=== PATIENT | female | born 1975 | race Caucasian/White ===

== ENCOUNTER → 2024-01-22 06:22 | Day surgery (SDC) | payer BC, SELFPAY | LOC: GI 06:22 | PROVIDERS: ATTENDING PHYSICIAN Internal Medicine Gastroenterology | DX: Z12.11 Encounter for screening for malignant neoplasm of colon (principal); K64.8 Other hemorrhoids | CPT/HCPCS: G0121 ==

== ENCOUNTER → 2024-05-27 11:48 | Outpatient (REF) | payer BC, SELFPAY | LOC: HWWDC 11:48 | PROVIDERS: ATTENDING PHYSICIAN Obstetrics & Gynecology Gynecology; FAMILY PHYSICIAN Nurse Practitioner Adult Health | DX: Z12.31 Encounter for screening mammogram for malignant neoplasm of breast (principal) | CPT/HCPCS: 77063; 77067 ==

== ENCOUNTER 2024-10-13 12:03 | Emergency (ER) | payer BC, SELFPAY ==
[2024-10-13 12:10] VITALS: BP 154/103
--- NOTE | 2024-10-13 13:29 | ED.GENMED ---
History of Present Illness
General
Chief Complaint: Throat Problem
Time Seen by Provider: 10/13/24 13:17
History of Present Illness
History of Present Illness:
Note:
CHIEF COMPLAINT(S)
Swollen uvula and gastrointestinal symptoms.
HISTORY OF PRESENT ILLNESS
The patient is a 49-year-old female who presents with a swollen uvula and reports having a stomach bug since this morning. She experienced nausea and vomiting, with symptoms pointing towards a possible gastroenteritis. She notes the uvula is swollen
but not painful, describing it as rather small and without significant swelling of the surrounding throat tissues. She has vomited and experiences mild diarrhea. The patient mentions that there is no significant pain following the vomiting,
suggesting some improvement. She has not taken any medications prior to coming in.
The swelling of the uvula is suspected to be chemically induced, possibly due to acid irritation from vomiting. She has been on a GLP-1 agonist for three weeks without recent dose changes. She describes some unease but no significant abdominal pain
Given that GLP-1 agonist can cause discomfort or vomiting in the initial weeks of treatment. Some testing will be conducted to rule out pancreatitis, which was considered due to the symptoms but deemed less likely due to the absence of significant
abdominal pain.
PHYSICAL EXAM
- General: Well-appearing female with a swollen uvula, no stridor or dysphasia observed.
- Cardiovascular: Heart regular rate and rhythm.
- Respiratory: Lungs clear on auscultation.
- Abdominal: Soft and non-tender.
- Nursing notes reviewed and vital signs reviewed.
PLAN
1. Administer IV antihistamines and IV steroids to address uvula swelling.
2. Blood tests to check basic labs, including liver enzymes and pancreatic enzymes, due to recent initiation of a GLP-1 agonist.
3. Observe for any changes and provide supportive care as needed.
DIFFERENTIAL DIAGNOSIS
The Differential Diagnosis includes, in no particular order and is not limited to:
1. Gastroenteritis (viral or bacterial)
2. Chemical irritation of uvula due to emesis
3. Foodborne illness
4. Upper respiratory tract infection
5. Allergic reaction
6. Pancreatitis (less likely given clinical presentation)
7. Pharyngitis
8. Strep throat
9. Medication side effects (related to GLP-1 agonist)
10. Laryngopharyngeal reflux
CARE-UPDATE
10/13/24 - 15:04
Blood work was normal, ruling out pancreatitis based on normal pancreatic enzyme levels. The patients symptoms do not warrant retesting for potassium, despite initial challenges with blood sample quality. A single dose of steroids is expected to
manage symptoms effectively, with a backup prescription for three additional doses if symptoms persist. Continuation of antihistamines like Benadryl is advised if necessary. The patient is recommended to skip the next dose of Zepbound due to current
symptoms. Adjustment of Zepbound dosage may be considered if symptoms recur, as commonly prescribed dosages may be higher than necessary for many patients.
Disposition:
SUMMARY OF ENCOUNTER
The patient is a 49-year-old female who presented with throat discomfort and a swollen uvula following multiple episodes of vomiting. The vomiting is potentially due to a self-limited syndrome, viral gastroenteritis, foodborne pathogen, or a side
effect of her GLP-1 agonist medication. Upon arrival at the emergency department, no further vomiting was observed and lab results returned normal. Despite hemolysis affecting the interpretation of liver function tests, there was no evidence of
pancreatitis induced by the GLP-1 agonist.
EMERGENCY TREATMENTS ADMINISTERED
The treatment administered in the emergency department included IV antihistamines and IV steroids, which improved the swelling of the uvula.
PLAN
The patient will be prescribed three additional days of steroid use but it is suggested that further doses may not be necessary. She is advised to observe symptoms at home and monitor her condition.
DISPOSITION
The patient will be discharged home for further observation and monitoring.
INDEPENDENT INTERPRETATION OF TESTS
My independent interpretation of the blood tests indicates normal results, with no evidence of pancreatitis from GLP-1 agonist use despite the potential impact of hemolysis on liver function test interpretation.
MEDICATION RECONCILIATION
A single dose of steroids was administered, with a prescription provided for three more doses if required.
MEDICAL DECISION MAKING
Number and Complexity of Problems Addressed: The patient presented with symptoms that could have multiple potential causes, including viral gastroenteritis, a medication side effect, or foodborne illness.
Data: Lab tests were conducted to rule out pancreatitis, which were normal.
Risk: Consideration was given for hospital admission due to the potential severity and differential diagnoses, but the decision was made to continue outpatient care following treatment and reevaluation in the ED. Prescription drug management was
conducted with steroids to manage symptoms.
Past History
Past History
ED Past Medical History: Other (RLL 14 mm lung nodule)
ED Past Surgical History: Gynecological
Phy Exam
Physical Exam
Physical Exam:
.
Course
Orders/Labs/Results
Orders:
Orders
10/13/24 13:28
Diphenhydramine [Benadryl] 25 mg IV NOW STA
Famotidine [Pepcid] 20 mg IV NOW STA
MethylPREDNISolone PF [Solu-Medrol Pf] 60 mg IV NOW STA
10/13/24 14:16
Basic Metabolic Panel Urgent
Complete Blood Count/No Diff Urgent
Lipase Urgent
Abnormal Lab Results
10/13/24
14:16
MPV 10.6 H fL
(7.4-10.4)
Chloride 109 H mmol/L
(98-107)
10/13/24 14:16
10/13/24 14:16
Vital Signs
Initial and Last Documented VS:
Initial Vital Signs
Temp Pulse Resp BP Pulse Ox
98.6 F 91 18 154/103 98
10/13/24 12:10 10/13/24 12:10 10/13/24 12:10 10/13/24 12:10 10/13/24 12:10
Last Documented Vital Signs
Temp Pulse Resp BP Pulse Ox
98.6 F 62 16 119/62 98
10/13/24 12:10 10/13/24 14:00 10/13/24 14:00 10/13/24 14:00 10/13/24 14:00
*Critical Care Note
Total Time (30-74mins, 75-104mins- exclusive of procedures): Not Applicable
ED Attending Note
-
Portions of this chart may have been created with voice recognition software.� Occasional wrong word or��sound alike� substitutions may have occurred due to the inherent limitations of voice recognition software.
Discharge Plan
Departure
Patient Disposition: Home (Routine Discharge)
Date of Disposition: 10/13/24
Time of Disposition: 15:05
Patient with high blood pressure during this ER visit?: No
Discharge Problem:
Uvulitis
Instructions: Sore Throat, Adult (DC)
Prescriptions:
New
prednisone 20 mg tablet
40 mg PO DAILY 3 Days Qty: 6 0RF
Referrals:
Dinora Wilkins CRNP [Family Provider, Internal Medicine]
Activity Restrictions/Additional Instructions:
You will not likely need further doses of steroid however I have prescribed 3 further days if symptoms do not seem to be fully resolved by tomorrow
Interventions
Interventions:
*Risk Screen - Suicide Last Done: 10/13/24 12:10
*General Assessment Last Done: 10/13/24 12:10
*Neglect/Abuse Screening Last Done: 10/13/24 12:10
*ED- Fall Risk Assessment Last Done: 10/13/24 12:10
*ED COVID-19 Vaccine History Last Done: 10/13/24 12:10
*Nursing Disposition Last Done: 10/13/24 15:45
ED-EENT Assessment Last Done: 10/13/24 14:00
ED- Pulmonary Assessment Last Done: 10/13/24 14:00
Discharge Date and Time
Discharge Date/Time: 10/13/24 15:47
Print Language: [id number]
[2024-10-13 14:00] VITALS: BP 119/62
[2024-10-13 14:04] VITALS: BMI 29.9
[2024-10-13] MEDS: BENADRYL 25 MG IV (14:21)
[2024-10-13] MEDS: PEPCID 20 MG IV (14:22)
[2024-10-13] MEDS: SOLU-MEDROL PF 60 MG IV (14:22)
[2024-10-13 14:25] LABS: Hematocrit 40.3 % (37.0-47.0); Hemoglobin 13.9 g/dL (12.0-16.0); Mean Corp Hgb Conc. 34.5 g/dL (33.0-37.0); Mean Corpuscular Hgb 30.6 pg (27.0-31.0); Mean Corpuscular Volume 88.8 fL (81.0-99.0); Mean Platelet Volume 10.6 fL (7.4-10.4); Platelet Count 235 10^3/uL (130-400); Red Blood Cell Count 4.54 10^6/uL (4.20-5.40); Red Cell Dist. Width 12.6 % (11.5-14.5); White Blood Cell Count 7.8 10^3/uL (4.8-10.8)
[2024-10-13 14:52] LABS: Blood Urea Nitrogen 10 mg/dl (7-17); Calcium 9.6 mg/dl (8.4-10.2); Carbon Dioxide 25 mmol/L (22-30); Chloride 109 mmol/L (98-107); Estimated Creatinine Clearance 106 ml/min; Glucose 94 mg/dl (70-99); Lipase 63 U/L (23-300); Sodium 141 mmol/L (135-145); eGFR > 60.00
== END 2024-10-13 15:47 | disposition home or self-care (01) ==
LOC: EMR 12:03
PROVIDERS: Physician Assistant; EMERGENCY PHYSICIAN Emergency Medicine; FAMILY PHYSICIAN Nurse Practitioner Adult Health
DX: K12.2 Cellulitis and abscess of mouth (principal); R11.2 Nausea with vomiting, unspecified
CPT/HCPCS: 96374; 96375; 99284; 80048; 83690; 85027